=== PATIENT | female | born 1945 | race Two or more races ===

== ENCOUNTER 2016-08-31 14:42 | Outpatient (CLI) | payer MEDICARE, OTHER ==
[~2016-08-31 14:42] MED LIST: ASPIRIN EC81 MG ORAL; ATORVASTATIN CA20 MG ORAL; CALCIUM 500 +1 EAC3 PO; CARVEDILOL12.5 MG ORAL; CITALOPRAM HBR20 M1 ORAL; DIOVAN HCT 1601 EAC1 ORAL; FERROUS SULFAT325 MG ORAL; FOSAMAX70 MG ORAL; LASIX20 MG IV; LEVOTHYROXINE100 MCG ORAL; LOSARTAN-HCTZ1 EAC1 ORAL; METOPROLOL SUCC50 MG ORAL; NEXIUM40 MG ORAL; NITROGLYCERIN2.5 MG PO; PAMELOR10 MG ORAL; RANEXA500 MG ORAL; VIT D PO
--- NOTE | 2016-08-31 15:26 | GI Progress Note ---
Assessment/Plan Problems: (1) Encounter for diagnostic endoscopy ICD Codes: Z01.818 - Encounter for other preprocedural examination SNOMED: 434471662, 446406805 (2) Anemia ICD Codes: D64.9 - Anemia SNOMED: 686259393 (3) GERD (gastroesophageal reflux disease) ICD Codes: K21.9 - GERD (gastroesophageal reflux disease) SNOMED: 503782561 (4) Hypercholesteremia ICD Codes: E78.0 - Hypercholesteremia SNOMED: 66990311 (5) Hypothyroidism ICD Codes: E03.9 - Hypothyroidism SNOMED: 23749148 Status: stable Status Narrative Seen with Dr. Gee. Assessment/Plan FOB ordered, supplies given to patient. SBCE scheduled for 09/15/16. - [facility] & [employer] prep instructions given and acknowledged. Endoscopy Procedure Note Indication for Procedure: anemia, screening colon Procedures Performed: EGD, colonoscopy Operative Findings/Diagnosis: gastritis, diverticuli RADHA GEE - Nov 09, 2014 10:47 Subjective Gastrointestinal/Abdominal: Reports: no symptoms Objective T 98.2 BP 153/79 P 60 97 RA General Appearance: no apparent distress, alert Cardiovascular: normal rate Respiratory/Chest: normal breath sounds, no respiratory distress Abdominal Exam: normal bowel sounds, non tender, soft Extremities: normal range of motion Yarely Connors N.P. Aug 31, 2016 15:26
[2016-08-31] MEDS ORDERED: ALLOPURINOL100 M1 ORAL (15:32)
[2016-08-31] MEDS ORDERED: POTASSIUM CHLOR8 ME2 PO (15:32)
[2016-08-31] MEDS ORDERED: PAMELOR10 MG ORAL (15:32)
[2016-08-31] MEDS ORDERED: CRESTOR10 M2 ORAL (15:32)
== END 2016-08-31 15:15 | disposition home or self-care (01) ==
LOC: PAN 14:42
DX: Z01.818 Encounter for other preprocedural examination (principal); D64.9 Anemia, unspecified; K21.9 Gastro-esophageal reflux disease without esophagitis; E78.00 Pure hypercholesterolemia, unspecified; E03.9 Hypothyroidism, unspecified
CPT/HCPCS: 99211

== ENCOUNTER 2016-09-15 08:19 | Outpatient (CLI) | payer MEDICARE, OTHER ==
[~2016-09-15 08:19] MED LIST changes: +ALLOPURINOL100 M1 ORAL; +CRESTOR10 M2 ORAL; +POTASSIUM CHLOR8 ME2 PO
[2016-09-15 09:17] VITALS: BP 150/88
--- NOTE | 2016-09-16 13:51 | GI Progress Note ---
Assessment/Plan Problems: (1) Hx of CABG ICD Codes: Z95.1 - Hx of CABG SNOMED: 302427890 (2) Encounter for diagnostic endoscopy ICD Codes: Z01.818 - Encounter for other preprocedural examination SNOMED: 045392393, 575326175 (3) GERD (gastroesophageal reflux disease) ICD Codes: K21.9 - GERD (gastroesophageal reflux disease) SNOMED: 833517718 (4) Hypothyroidism ICD Codes: E03.9 - Hypothyroidism SNOMED: 97124327 (5) Hypercholesteremia ICD Codes: E78.0 - Hypercholesteremia SNOMED: 26540054 (6) Anemia ICD Codes: D64.9 - Anemia SNOMED: 499422530 (7) Large internal hemorrhoids (8) HTN (hypertension) ICD Codes: I10 - HTN (hypertension) SNOMED: 63557446 Status: stable Status Narrative Discussed with Dr. Gee. Assessment/Plan SBCE done today. RTC x 1 day to return equipment. Endoscopy Procedure Note Indication for Procedure: anemia, screening colon Procedures Performed: EGD, colonoscopy Operative Findings/Diagnosis: gastritis, diverticuli RADHA GEE - Nov 09, 2014 10:47 Late Entry for 09/15/16. Subjective Gastrointestinal/Abdominal: Reports: no symptoms Objective General Appearance: no apparent distress, alert Cardiovascular: normal rate Respiratory/Chest: normal breath sounds, no respiratory distress Abdominal Exam: normal bowel sounds, non tender, soft Extremities: normal range of motion Yarely Connors N.P. Sep 16, 2016 13:51
== END 2016-09-15 09:15 | disposition home or self-care (01) ==
LOC: PAN 08:19
DX: Z01.818 Encounter for other preprocedural examination (principal); Z95.1 Presence of aortocoronary bypass graft; K21.9 Gastro-esophageal reflux disease without esophagitis; E03.9 Hypothyroidism, unspecified; E78.00 Pure hypercholesterolemia, unspecified; D64.9 Anemia, unspecified; I10 Essential (primary) hypertension; K64.8 Other hemorrhoids
CPT/HCPCS: 82270

== ENCOUNTER 2016-09-24 13:08 | Outpatient (CLI) | payer MEDICARE, OTHER ==
--- NOTE | 2016-09-24 14:36 | GI Progress Note ---
Assessment/Plan Problems: (1) Anemia ICD Codes: D64.9 - Anemia SNOMED: 944474685 (2) GERD (gastroesophageal reflux disease) ICD Codes: K21.9 - GERD (gastroesophageal reflux disease) SNOMED: 226615673 (3) Encounter for diagnostic endoscopy ICD Codes: Z01.818 - Encounter for other preprocedural examination SNOMED: 636906503, 217790640 (4) Hypothyroidism ICD Codes: E03.9 - Hypothyroidism SNOMED: 42975325 Status: stable Status Narrative Seen with Dr. Gee. Assessment/Plan SBCE reviewed with patient. RTC x 3 months for repeat CBC repeat colonoscopy 2019 The patient was seen and examined at bedside and all new and available data was reviewed in the patients chart. I agree with the above findings, impression and plan. (Patient seen earlier today. Signature stamp does not reflect patient encounter time.). -Lamont Gee MD Subjective Gastrointestinal/Abdominal: Reports: no symptoms Objective T 97.8 BP 132/68 P 61 95 RA General Appearance: no apparent distress, alert Cardiovascular: normal rate Respiratory/Chest: normal breath sounds, no respiratory distress Abdominal Exam: normal bowel sounds, non tender, soft Genitourinary/Rectal: normal rectal exam Extremities: normal range of motion, non-tender Yarely Connors N.P. Sep 24, 2016 14:36 LAMONT GEE Sep 25, 2016 10:31
== END 2016-09-24 13:30 | disposition home or self-care (01) ==
LOC: PAN 13:08
DX: Z01.818 Encounter for other preprocedural examination (principal); D64.9 Anemia, unspecified; K21.9 Gastro-esophageal reflux disease without esophagitis; E03.9 Hypothyroidism, unspecified
CPT/HCPCS: 99211